=== PATIENT | male | born 1960 | race Two or more races ===

== ENCOUNTER 2025-09-06 12:38 | Emergency (ER) | payer OTHER ==
[~2025-09-06] VITALS: Ht 182.9 cm; Wt 144.2 kg
--- NOTE | 2025-09-06 13:16 | ED.PDOC ---
Musculoskeletal HPI Comments 65 y/o M, with PMHx of thyroid and lung cancer (in remission), CHF, COPD presents to the ED for CC of bilateral lower extremity swelling, exertional shortness of breath. Patient states, he has been experiencing bilateral lower extremity swelling with associated shortness of breath [id number]. Patient relays, symptoms have now been exacerbated in the last x2-3weeks now becoming short of breath upon ambulation and during light activities. Upon arrival to the ED, patient is noted to have a full body rash; endorses rash being present since, completion of chemotherapy and radiation in January 2024. Reports using his albuterol pump with minimal relief. Symptoms feel similar to prior heart failure exacerbations. Reports compliance with 40 mg of Lasix which he takes daily. Patient denies fever, flu-like symptoms, chest pain, or dizziness. No other symptoms or modifying factors are present at this time. Patient also reports that at some point he had some sort of heart issue, was told that he had an abnormal heart rhythm before (likely atrial fibrillation), was on anticoagulation. However, he states that that resolved and he is no longer taking anticoagulation. Does not take any medications for an abnormal heart rhythm Chief Complaint: Lower Extremity Time Seen by MD: 13:25 Reviewed Notes: Nurses Notes, Medications, Allergies Allergies: Coded Allergies: NO KNOWN ALLERGIES (Unverified , 09/06/25) Information Source: Patient Mode of Arrival: Ambulatory Location: Bilateral Extremity Location: Leg Timing: Months Prehospital treatment: None Severity: Moderate Able to Move Extremity: Yes Bear Weight: Fully Mechanism: Spontaneous Circumstances: Spontaneous Onset of Symptoms: Spontaneous Symptoms: Swelling DVT Risk Factors: Cancer Associated signs and symptoms: Swelling Past Medical History PAST MEDICAL HISTORY: Cancer, COPD Surgical History: Denies all surgeries Family History Family History: Unknown Social History Smoker: Non-Smoker Alcohol: Denies ETOH Use Drugs: Denies Drug Use Lives In: Home Constitutional: denies: chills, diaphoresis, fatigue, fever, malaise, sweats, weakness, others EENTM: denies: blurred vision, double vision, ear bleeding, ear discharge, ear drainage, ear pain, ear ringing, eye pain, eye redness, hearing loss, mouth pain, mouth swelling, nasal discharge, nose bleeding, nose congestion, nose pain, photophobia, tearing, throat pain, throat swelling, voice changes, others Respiratory: reports: shortness of breath, SOB with excertion; denies: cough, hemoptysis, orthopnea, stridor, wheezing, others Cardiovascular: reports: edema, palpitations; denies: chest pain, dizzy spells, diaphoresis, Dyspnea on exertion, irregular heart beat, left arm pain, lightheadedness, PND, syncope, others Gastrointestinal: denies: abdomen distended, abdominal pain, blood streaked bowels, constipated, diarrhea, dysphagia, difficulty swallowing, hematemesis, melena, nausea, poor appetite, poor fluid intake, rectal bleeding, rectal pain, vomiting, others Genitourinary: denies: burning, dysuria, flank pain, frequency, hematuria, incontinence, penile discharge, penile sore, pain, testicle pain, testicle swelling, urgency, others Neurological: denies: dizziness, fainting, headache, left sided numbness, left sided weakness, numbness, paresthesia, pre-existing deficit, right sided numbness, right sided weakness, seizure, speech problems, tingling, tremors, weakness, others Musculoskeletal: reports: others (bilateral leg swelling); denies: back pain, gout, joint pain, joint swelling, muscle pain, muscle stiffness, neck pain Integumetry: denies: bruises, change in color, change in hair/nails, dryness, laceration, lesions, lumps, rash, wounds, others Hematologic/Lymphatic: denies: anemia, blood clots, easy bleeding, easy bruising, swollen glands, others Endocrine: denies: excessive hunger, excessive sweating, excessive thirst, excessive urination, flushing, intolerance to cold, intolerance to heat, unexplained weight gain, unexplained weight loss, others Psychiatric: denies: anxiety, bipolar disorder, depression, hopeless, panic disorder, schizophrenia, sleepless, suicidal, others All Other Systems: Reviewed and Negative Physical Exam General Appearance: No Apparent Distress, Normal HEENT: Normal ENT Inspection, Pharynx Normal Neck: Full Range of Motion, Non-Tender, Normal, Normal Inspection Respiratory: Chest Non-Tender, Lungs Clear, No Respiratory Distress, Normal Breath Sounds, Other (Pt becomes tachypneic with short ambulation trial) Cardiovascular: No Murmur, No Gallop, Normal Peripheral Pulses, Regular Rate/Rhythm, Other (Anasarca, 3+ pitting edema bilateral lower extremity extending up to the abdomen) Breast Exam: Deferred Gastrointestinal: No Organomegaly, Non Tender, No Pulsatile Mass, Normal Bowel Sounds, Soft Genitalia: Deferred Pelvic: Deferred Rectal: Deferred Extremities: No calf tenderness, Normal capillary refill, Normal inspection, Normal range of motion, Non-tender, Pedal edema Musculoskeletal : Apperance: Normal Neurologic: Alert, bilingual call center representative II-XII nml as Tested, No Motor Deficits, Normal Affect, Normal Mood, No Sensory Deficits Cerebellar Function: Normal Reflexes: Normal Skin: Dry, Normal Color, Rash (venous stasis changes, erythematous rash along dorsum of feet, anasarca, erythematous rash to lower back ), Warm Lymphatic: No Adenopathy Was a procedure done? Was a procedure done?: No EKG EKG : Pulse Rate (adult): 137 [place]: Normal Cardiac Rhythm: Afib Block: None Hypertrophy: None ST: Normal Differential Diagnosis EXT Differential Diagnosis: CHF, Deep Vein Thrombosis, Other (COPD vs Atrial Fibrillation) X-Ray, Labs, Meds, VS Vital Signs Date Time Temp Pulse Resp B/P (MAP) Pulse Ox O2 Delivery O2 Flow Rate FiO2 09/06/25 18:43 137 09/06/25 18:25 137 09/06/25 18:00 137 18 136/86 (103) 100 09/06/25 17:00 122/81 09/06/25 16:00 Nasal Cannula* 4 36 09/06/25 16:00 97.5 88 21 122/81 (95) 100 97.5 09/06/25 12:50 98.0 97 20 126/89 97 98.0 Lab Test 09/06/25 14:13 Range/Units White Blood Count 8.1 4.4-10.8 10^3/uL Red Blood Count 3.54 L 4.5-5.90 10^6/uL Hemoglobin 10.9 L 13.5-17.5 g/dL Hematocrit 33.3 L 41.0-53.0 % Mean Corpuscular Volume 94.1 80.0-100.0 fL Mean Corpuscular Hemoglobin 30.7 28.0-32.0 pg Mean Corpuscular Hemoglobin Concent 32.7 32.0-36.0 g/dL Red Cell Distribution Width 19.4 H 11.8-14.3 % Platelet Count 435 140-450 10^3/uL Mean Platelet Volume 7.0 6.9-10.8 fL Neutrophils (%) (Auto) 68.6 37.0-80.0 % Lymphocytes (%) (Auto) 7.1 L 10.0-50.0 % Monocytes (%) (Auto) 12.0 0.0-12.0 % Eosinophils (%) (Auto) 11.6 H 0.0-7.0 % Basophils (%) (Auto) 0.7 0.0-2.0 % Neutrophils # (Auto) 5.5 1.6-8.6 10 ^3/uL Lymphocytes # (Auto) 0.6 0.4-5.4 10 ^3/uL Monocytes # (Auto) 1.0 0-1.3 10 ^3/uL Eosinophils # (Auto) 0.9 H 0-0.8 10 ^3/uL Basophils # (Auto) 0.1 0-0.2 10 ^3/uL Nucleated Red Blood Cells 0.0 % Prothrombin Time 11.4 9.3-11.8 sec Prothrombin Time INR 1.08 0.9-1.15 Activated Partial Thromboplast Time 27.7 24.5-34.5 SEC Sodium Level 140 136-145 mmol/L Potassium Level 3.9 3.5-5.1 mmol/L Chloride Level 105 98-107 mmol/L Carbon Dioxide Level 26 20-31 mmol/L Anion Gap 9 5-15 Blood Urea Nitrogen 27 H 9-23 mg/dL Creatinine 1.17 0.700-1.30 mg/dL Glomerular Filtration Rate Calc 69 >90 mL/min BUN/Creatinine Ratio 23.1 H 10.0-20.0 Serum Glucose 98 74-106 mg/dL Calcium Level 9.2 8.7-10.4 mg/dL Troponin I High Sensitivity 14 </=54 ng/L B-Type Natriuretic Peptide 209.90 0-100 pg/mL Current Medications Medications (Trade) Dose Ordered Sig/Cee Route Start Time Stop Time Status Last Admin Furosemide (Lasix Injection) 40 mg ONCE ONCE IV 09/06/25 14:45 09/06/25 14:46 DC 09/06/25 17:00 Diltiazem HCl (Cardizem Injection) 25 mg ONCE ONCE IV 09/06/25 18:30 09/06/25 18:32 DC 09/06/25 19:[address] [address] Ph: [phone] DIAGNOSTIC IMAGING Diagnostic Imaging Report : [id number] Signed PATIENT: TRAN HANNA ACCT: [id number] UNIT: [id number] : 1960 LOC: ER ROOM / BED: / AGE / SEX: 65 / M ADM STATUS: REG ER SERVICE 1258 ORDERING PHYSICIAN: GLEN HUTCHINSON MD PROCEDURE(s): CXR1 - CHEST XRAY 1 VIEW REASON: Chest Pain ORDER NUMBER(s): [id number], ACCESSION NUMBER(s): [id number] EXAM: XY CHEST XRAY 1 VIEW HISTORY: Chest Pain, COPD COMPARISON: None TECHNIQUE: Portable AP view of the chest was performed. FINDINGS: There is a right chest port-A-Cath with its tip in the lower SVC. No pneumothorax, consolidative infiltrates, or pulmonary edema. The heart is borderline enlarged. The aortic arch is calcific. There is thoracic degenerative disc disease. IMPRESSION: No acute intrathoracic process. ATED BY: KYRIE APONTE MD DICTATED DATE/TIME: 09/06/25 134 SIGNED BY: KYRIE APONTE MD SIGNED DATE/TIME: 09/06/25 1343 CC: [address] [address] Ph: [phone] DIAGNOSTIC IMAGING Diagnostic Imaging Report : [id number] Signed PATIENT: TRAN HANNA ACCT: [id number] UNIT: [id number] : 1960 LOC: ER ROOM / BED: / AGE / SEX: 65 / M ADM STATUS: REG ER SERVICE 1258 ORDERING PHYSICIAN: GLEN HUTCHINSON MD PROCEDURE(s): BLDVT - BiLat Lower DVT REASON: BLE swelling; h/o cancer ORDER NUMBER(s): [id number], ACCESSION NUMBER(s): [id number] Bilateral lower extremity venous duplex Clinical History: BLE swelling; h/o cancer Comparison: None Technique: Duplex Doppler evaluation of the deep venous systems of both lower extremities from the common femoral veins to the popliteal veins including color Doppler and spectral/pulsed waveform analysis was performed. Findings: RIGHT SIDE: The common femoral vein demonstrates appropriate compressibility and waveform variability. There is compressibility/patency of the great saphenous vein at the proximal thigh. The femoral vein demonstrates appropriate compressibility and waveform variability. The deep femoral vein demonstrates appropriate compressibility and waveform variability. The popliteal vein demonstrates appropriate compressibility and waveform variability. There is normal compressibility at the tibioperoneal trunk. LEFT SIDE: Multiple enlarged lymph nodes in the left inguinal area. Largest measures 3.7 x 1.3 x 3.2 cm. The common femoral vein demonstrates appropriate compressibility and waveform variability. There is compressibility/patency of the great saphenous vein at the proximal thigh. The femoral vein demonstrates appropriate compressibility and waveform variability. The deep femoral vein demonstrates appropriate compressibility and waveform variability. The popliteal vein demonstrates appropriate compressibility and waveform variability. There is normal compressibility at the tibioperoneal trunk. Impression: 1. No right or left femoropopliteal venous thrombosis. ATED BY: NIKI SANDHU Jr., DO DICTATED DATE/TIME: 09/06/251745 SIGNED BY: NIKI SANDHU Jr., SIGNED DATE/TIME: 09/06/251745 CC: Time of 1ST Reevaluation: 13:55 Reevaluation 1ST: Unchanged Time of 2ND Reevaluation: 18:38 (Patient was trying to get up and positioned himself in bed, then noted to be tachycardic, EKG showing atrial fibrillation with rapid ventricular response.) Reevaluation 2ND: Worsened Patient Education/Counseling: Diagnosis, Treatment Family Education/Counseling: No Family Present Departure 1 Departure Time of Disposition: 18:40 (65 y/o M, with PMHx of thyroid and lung cancer (in remission), CHF, COPD presents to the ED for CC of bilateral lower extremity swelling, exertional shortness of breath. Pt became winded when walking a short distance. Clinically does appear to be fluid overloaded with edema from bilateral legs up to the abdomen. Although he has normal BNP with a normal chest x-ray he reports that his total body weight is up over the past weeks. This clinically seems consistent with heart failure exacerbation. Patient given IV Lasix for this. Although the patient has a history of COPD has no wheezing on examination, clinically does not seem consistent with COPD patient currently. While the patient was in his bed and trying to position himself his heart rate was noted she had up to the 150s, EKG was performed which shows that patient has atrial fibrillation with rapid ventricular response. Patient reports having a distant history of this, not currently taking anything for this. Was given a 1 time IV diltiazem dose. Given the history of malignancy with increased bilateral lower extremity edema, swelling bilateral duplex ultrasounds were performed which are negative for DVT. Does not require CT angiography of the chest given negative DVT study. Pt has no evidence of critical leukocytosis or significant anemia. Metabolic panel with no evidence of acute electrolyte abnormalities. Patient has pain, however, screening troponin not critically elevated. Patient will be admitted for further IV diuresis and further management of his atrial fibrillation with rapid ventricular response.) Impression: Primary Impression: Dyspnea on exertion Additional Impressions: Anasarca Atrial fibrillation with RVR Disposition: ADMITTED INPATIENT Admit to: Tele Condition: Guarded Critical Care Note Critical Care Time?: Yes (45 min-critical care time only) Critical care comment: Patient with signs of fluid overload requiring IV diuresis. Patient with signs of tachyarrhythmia (atrial fibrillation with rapid ventricular response) requiring IV rate-controlling agents to ensure that the patient's blood pressure does not drop. Stability Stability form required: No Heart Score Heart Score: Heart Score Response (Comments) Value History N/A 0 EKG N/A 0 Age N/A 0 Risk Factors N/A 0 Troponin N/A 0 Total 0 I personally scribed for GLEN HUTCHINSON MD ([email or web address]) on 09/06/25 at 13:16. Electronically submitted by Kassi Dior ([email or web address]). I personally scribed for GLEN HUTCHINSON MD ([employer]) on 09/06/25 at 13:19. E lectronically submitted by Kassi Dior ([email or web address]). I personally scribed for GLEN HUTCHINSON MD ([employer]) on 09/06/25 at 14:38. El ectronically submitted by Kassi Dior ([email or web address]). I personally scribed for GLEN HUTCHINSON MD ([email or web address]) on 09/06/25 at 16:32. Inocencia ctronically submitted by Kassi Dior ([email or web address]). I personally scribed for GLEN HUTCHINSON MD ([email or web address]) on 09/06/25 at 19:00. Elec tronically submitted by Kassi Dior ([email or web address]). GLEN HUTCHINSON MD Sep 06, 2025 13:16
--- NOTE | 2025-09-06 13:46 | DVH ---
EXAM: XY CHEST XRAY 1 VIEW HISTORY: Chest Pain, COPD COMPARISON: None TECHNIQUE: Portable AP view of the chest was performed. FINDINGS: There is a right chest port-A-Cath with its tip in the lower SVC. No pneumothorax, consolidative infiltrates, or pulmonary edema. The heart is borderline enlarged. The aortic arch is calcific. There is thoracic degenerative disc disease. IMPRESSION: No acute intrathoracic process.
[2025-09-06 14:23] LABS: Hematocrit 33.3 % (41.0-53.0); Hemoglobin 10.9 g/dL (13.5-17.5); Mean Corpuscular Hemoglobin 30.7 pg (28.0-32.0); Mean Corpuscular Volume 94.1 fL (80.0-100.0); Nucleated Red Blood Cells % 0.0 %
[2025-09-06 14:36] LABS: Chloride 105 mmol/L (98-107); Potassium 3.9 mmol/L (3.5-5.1); Sodium 140 mmol/L (136-145)
[2025-09-06 14:37] LABS: Anion Gap 9 (5-15); Carbon Dioxide 26 mmol/L (20-31)
[2025-09-06 14:38] LABS: Calcium 9.2 mg/dL (8.7-10.4)
[2025-09-06 14:42] LABS: Glucose 98 mg/dL (74-106); INR 1.08 (0.9-1.15); Partial Thromboplastin Time 27.7 SEC (24.5-34.5); Prothrombin Time 11.4 sec (9.3-11.8)
[2025-09-06 14:43] LABS: BUN/Creatinine Ratio 23.1 (10.0-20.0)
[2025-09-06 14:45] LABS: Blood Urea Nitrogen 27 mg/dL (9-23)
[2025-09-06] MEDS: FUROSEMIDE 40 MG/4 ML VIAL IV ONE (17:00)
--- NOTE | 2025-09-06 17:48 | DVH ---
Bilateral lower extremity venous duplex Clinical History: BLE swelling; h/o cancer Comparison: None Technique: Duplex Doppler evaluation of the deep venous systems of both lower extremities from the common femoral veins to the popliteal veins including color Doppler and spectral/pulsed waveform analysis was performed. Findings: RIGHT SIDE: The common femoral vein demonstrates appropriate compressibility and waveform variability. There is compressibility/patency of the great saphenous vein at the proximal thigh. The femoral vein demonstrates appropriate compressibility and waveform variability. The deep femoral vein demonstrates appropriate compressibility and waveform variability. The popliteal vein demonstrates appropriate compressibility and waveform variability. There is normal compressibility at the tibioperoneal trunk. LEFT SIDE: Multiple enlarged lymph nodes in the left inguinal area. Largest measures 3.7 x 1.3 x 3.2 cm. The common femoral vein demonstrates appropriate compressibility and waveform variability. There is compressibility/patency of the great saphenous vein at the proximal thigh. The femoral vein demonstrates appropriate compressibility and waveform variability. The deep femoral vein demonstrates appropriate compressibility and waveform variability. The popliteal vein demonstrates appropriate compressibility and waveform variability. There is normal compressibility at the tibioperoneal trunk. Impression: 1. No right or left femoropopliteal venous thrombosis.
--- NOTE | 2025-09-06 18:26 | ECG ---
[facility] Test Date: 2025-09-06 Test Time: 18:25:47 Pat Name: TRAN HANNA Department: ED Room: [address] [place] [address] Gender: M Transportation Technician: BO : 1960 Requested By: GLEN HUTCHINSON Order Number: [id number] Reading MD: Gerald Bacon Measurements Intervals [place] Rate: 137 P: 0 IA: 0 QRS: 38 QRSD: 88 T: 26 QT: 336 QTc: 508 Interpretive Statements Atrial fibrillation Low voltage, precordial leads Borderline T abnormalities, anterior leads Borderline prolonged QT interval Electronically Signed On 09-07-2025 18:54:30 PST by Gerald Bacon Please click the below link to view image of tracing.
[2025-09-06] MEDS: dilTIAZem 25 MG/5 ML VIAL IV ONE (18:53)
[2025-09-06] MEDS ORDERED: NITROGLYCERIN 0.4 MG SL TAB SL PRN ×2 (19:45→21:45)
[2025-09-06] MEDS ORDERED: MORPHINE SULFATE INJ 2 MG/ml SYRG IV PRN ×3 (19:45→21:45)
[2025-09-06] MEDS: methylPREDNISolone SOD SUCC 125 MG/2 ML VL IV ONE (21:01)
[2025-09-06] MEDS: METOPROLOL TARTRATE 50 MG TAB PO ONE (21:01)
[2025-09-06] MEDS ORDERED: HYDROcodone-ACET 5/325MG TAB PO PRN (21:45)
[2025-09-06] MEDS ORDERED: ONDANSETRON HCL 4 MG/2 ML VIAL IV PRN (21:45)
[2025-09-06 21:50] VITALS: PULSE 108; RESP 20; O2SAT 95
[2025-09-06 23:26] VITALS: PULSE 67; RESP 20; O2SAT 100
[2025-09-06] MEDS: IPRATROPIUM BROM 0.5 MG/2.5ML INH SOL NEB PRN (23:26)
[2025-09-06] MEDS: ALBUTEROL SULF 2.5 MG/0.5ML(0.5%) NEB SOLN NEB PRN (23:26)
[2025-09-06 23:34] VITALS: PULSE 74; RESP 20; O2SAT 100
[2025-09-06] MEDS: ENOXAPARIN SOD 100 MG/1 ML SYRINGE SC SCH (23:46)
[2025-09-06 23:47] VITALS: BP 110/62; PULSE 67; RESP 20; O2SAT 100
--- NOTE | 2025-09-06 23:54 | DVHINCON2 ---
Date of service: Sep 06, 2025 Referring Physician Alex Reason for Consultation A-fib RVR History of Present Illness This is a 65 year old male with a PMH of thyroid and lung cancer (in remission), CHF, COPD presents to the ED with complaint of bilateral lower extremity swelling, exertional shortness of breath. Patient states he has been experiencing bilateral lower extremity swelling with associated shortness of breath x 2months. Patient relays, symptoms have now been exacerbated in the last x 2-3weeks now becoming short of breath upon ambulation and during light activities. Upon arrival to the ED, patient is noted to have a full body rash, endorses rash being present since, completion of chemotherapy and radiation in January 2024. Reports using his albuterol pump with minimal relief. Symptoms feel similar to prior heart failure exacerbations. Reports compliance with 40 mg of Lasix which he takes daily. Patient also reports that at some point he had some sort of heart issue, was told that he had an abnormal heart rhythm before (likely atrial fibrillation), was on anticoagulation. However, he states that that resolved and he is no longer taking anticoagulation. Does not take any medications for an abnormal heart rhythm. EKG showed A Fib with RVR at 137. Troponin is negative x2. Chest x-ray showed NAD. Patient was admitted to the hospital. I am asked to consult on this patient. Allergies: Coded Allergies: NO KNOWN ALLERGIES (Unverified , 09/06/25) Current Medications Current Medications Medications (Trade) Dose Ordered Sig/Cee Route PRN Reason Start Time Stop Time Status Last Admin Nitroglycerin (Ntrostat Sublingual) 0.4 mg Q5MINP PRN SL FOR CHEST PAIN 09/06/25 19:45 09/06/25 21:19 DC Morphine Sulfate 2 mg Q30M PRN IV FOR CHEST PAIN 09/06/25 19:45 09/06/25 21:19 DC Acetaminophen (Tylenol Tablet) 325 mg Q4HP PRN PO MILD PAIN (1-3 PAIN SCALE) 09/06/25 21:45 Acetaminophen/ Hydrocodone Bitart ([place] 5/325MG Tab) 1 tab Q4HP PRN PO MODERATE PAIN (4-6 PAIN SCALE) 09/06/25 21:45 Ondansetron HCl (Zofran) 4 mg Q4HP PRN IV NAUSEA / VOMITING 09/06/25 21:45 Enoxaparin Sodium (Lovenox) 40 mg DAILY SC 09/07/25 10:00 09/06/25 23:23 DC Morphine Sulfate 2 mg Q4HPRN PRN IV SEVERE PAIN (7-10 PAIN SCALE) 09/06/25 21:45 Nitroglycerin (Ntrostat Sublingual) 0.4 mg Q5MINP PRN SL FOR CHEST PAIN 09/06/25 21:45 Morphine Sulfate 2 mg Q30M PRN IV FOR CHEST PAIN 09/06/25 21:45 Albuterol (Ventolin Medneb) 2.5 mg Q4HPRN PRN NEB SHORTNESS OF BREATH 09/06/25 23:15 09/06/25 23:26 Ipratropium [place] (Atrovent Medneb) 0.5 mg Q4HPRN PRN NEB SHORTNESS OF BREATH 09/06/25 23:15 09/06/25 23:26 Enoxaparin Sodium (Lovenox) 140 mg Q12HR SC 09/06/25 23:30 Review of Systems Constitutional: denies: chills, diaphoresis, fatigue, fever, malaise, sweats, weakness, others EENTM: denies: blurred vision, double vision, ear bleeding, ear discharge, ear drainage, ear pain, ear ringing, eye pain, eye redness, hearing loss, mouth pain, mouth swelling, nasal discharge, nose bleeding, nose congestion, nose pain, photophobia, tearing, throat pain, throat swelling, voice changes, others Respiratory: reports: shortness of breath, SOB with excertion; denies: cough, hemoptysis, orthopnea, stridor, wheezing, others Cardiovascular: reports: edema, palpitations; denies: chest pain, dizzy spells, diaphoresis, Dyspnea on exertion, irregular heart beat, left arm pain, lightheadedness, PND, syncope, others Gastrointestinal: denies: abdomen distended, abdominal pain, blood streaked bowels, constipated, diarrhea, dysphagia, difficulty swallowing, hematemesis, melena, nausea, poor appetite, poor fluid intake, rectal bleeding, rectal pain, vomiting, others Genitourinary: denies: burning, dysuria, flank pain, frequency, hematuria, incontinence, penile discharge, penile sore, pain, testicle pain, testicle swelling, urgency, others Neurological: denies: dizziness, fainting, headache, left sided numbness, left sided weakness, numbness, paresthesia, pre-existing deficit, right sided numbness, right sided weakness, seizure, speech problems, tingling, tremors, weakness, others Musculoskeletal: reports: others (bilateral leg swelling); denies: back pain, gout, joint pain, joint swelling, muscle pain, muscle stiffness, neck pain Integumetry: denies: bruises, change in color, change in hair/nails, dryness, laceration, lesions, lumps, rash, wounds, others Hematologic/Lymphatic: denies: anemia, blood clots, easy bleeding, easy bruising, swollen glands, others Endocrine: denies: excessive hunger, excessive sweating, excessive thirst, excessive urination, flushing, intolerance to cold, intolerance to heat, unexplained weight gain, unexplained weight loss, others Psychiatric: denies: anxiety, bipolar disorder, depression, hopeless, panic disorder, schizophrenia, sleepless, suicidal, others All Other Systems: Reviewed and Negative Vital Signs Vital Signs Date Time Temp Pulse Resp B/P (MAP) Pulse Ox O2 Delivery O2 Flow Rate FiO2 09/06/25 23:34 74 20 100 09/06/25 23:26 Nasal Cannula* 2 28 09/06/25 22:40 110/62 (78) 09/06/25 20:16 98.1 98.1 Physical Exam GENERAL: Alert and oriented x 3. No acute distress. EYES: PERRL, EOMI. Anicteric. HENT: Moist mucous membranes. LUNGS: Decreased breath sounds. CARDIOVASCULAR: Regular rate and rhythm. ABDOMEN: Soft, nontender and nondistended. EXTREMITIES: Anasarca, 3+ pitting edema bilateral lower extremity extending up to the abdomen. NEUROLOGIC: No focal neurological deficits. SKIN: Warm, dry. Venous stasis changes, erythematous rash along dorsum of feet, anasarca, erythematous rash to lower back. Labs/Diagnostic Data Labs Test 09/06/25 19:59 09/06/25 14:13 Range/Units Troponin I High Sensitivity 16 </=54 ng/L White Blood Count 8.1 4.4-10.8 10^3/uL Red Blood Count 3.54 L 4.5-5.90 10^6/uL Hemoglobin 10.9 L 13.5-17.5 g/dL Hematocrit 33.3 L 41.0-53.0 % Mean Corpuscular Volume 94.1 80.0-100.0 fL Mean Corpuscular Hemoglobin 30.7 28.0-32.0 pg Mean Corpuscular Hemoglobin Concent 32.7 32.0-36.0 g/dL Red Cell Distribution Width 19.4 H 11.8-14.3 % Platelet Count 435 140-450 10^3/uL Mean Platelet Volume 7.0 6.9-10.8 fL Neutrophils (%) (Auto) 68.6 37.0-80.0 % Lymphocytes (%) (Auto) 7.1 L 10.0-50.0 % Monocytes (%) (Auto) 12.0 0.0-12.0 % Eosinophils (%) (Auto) 11.6 H 0.0-7.0 % Basophils (%) (Auto) 0.7 0.0-2.0 % Neutrophils # (Auto) 5.5 1.6-8.6 10 ^3/uL Lymphocytes # (Auto) 0.6 0.4-5.4 10 ^3/uL Monocytes # (Auto) 1.0 0-1.3 10 ^3/uL Eosinophils # (Auto) 0.9 H 0-0.8 10 ^3/uL Basophils # (Auto) 0.1 0-0.2 10 ^3/uL Nucleated Red Blood Cells 0.0 % Prothrombin Time 11.4 9.3-11.8 sec Prothrombin Time INR 1.08 0.9-1.15 Activated Partial Thromboplast Time 27.7 24.5-34.5 SEC Sodium Level 140 136-145 mmol/L Potassium Level 3.9 3.5-5.1 mmol/L Chloride Level 105 98-107 mmol/L Carbon Dioxide Level 26 20-31 mmol/L Anion Gap 9 5-15 Blood Urea Nitrogen 27 H 9-23 mg/dL Creatinine 1.17 0.700-1.30 mg/dL Glomerular Filtration Rate Calc 69 >90 mL/min BUN/Creatinine Ratio 23.1 H 10.0-20.0 Serum Glucose 98 74-106 mg/dL Calcium Level 9.2 8.7-10.4 mg/dL B-Type Natriuretic Peptide 209.90 0-100 pg/mL Assessment Atrial fibrillation with RVR. Acute on chronic respiraotry failure. Plan/Recommendation I agree with your ongoing assessment and care of plan. Echocardiogram. Morphine and [place] for pain management. DVT prophylactics. Nitro SL. Additional plan as per the hospital course. A total of 45 minutes was spent reviewing the patient record, examining the patient, making a diagnostic and therapeutic plan, discussing this plan with medical personnel, following up on diagnostic studies and following the patient for clinical stability excluding any and all procedures. At least 50% of this time was spent in direct, [id number] contact. Plan discussed with: Patient EMI DAMON MD Sep 06, 2025 23:47
[2025-09-07] MEDS: ACETAMINOPHEN 325 MG TAB PO PRN (05:13)
[2025-09-07 06:32] VITALS: O2SAT 99
[2025-09-07 06:51] LABS: Hematocrit 31.4 % (41.0-53.0); Hemoglobin 10.2 g/dL (13.5-17.5); Mean Corpuscular Hemoglobin 30.9 pg (28.0-32.0); Mean Corpuscular Volume 95.2 fL (80.0-100.0); Nucleated Red Blood Cells % 0.1 %
[2025-09-07 07:01] LABS: Albumin 3.9 g/dL (3.2-4.8); Alkaline Phosphatase 81 U/L (46-116); Anion Gap 7 (5-15); BUN/Creatinine Ratio 23.4 (10.0-20.0); Calcium 8.8 mg/dL (8.7-10.4); Carbon Dioxide 27 mmol/L (20-31); Chloride 107 mmol/L (98-107); Potassium 4.4 mmol/L (3.5-5.1); Sodium 141 mmol/L (136-145); Total Protein 7.0 g/dL (5.7-8.2)
[2025-09-07 07:02] LABS: Bilirubin, Total 0.7 mg/dL (0.2-1.0)
[2025-09-07 07:05] LABS: Alanine Aminotransferase 52 U/L (7-40); Blood Urea Nitrogen 30 mg/dL (9-23); Glucose 137 mg/dL (74-106)
[2025-09-07 08:00] VITALS: PULSE 88; RESP 12; O2SAT 97
[2025-09-07] MEDS: methylPREDNISolone SOD SUCC 125 MG/2 ML VL IV ONE (08:30)
[2025-09-07] MEDS ORDERED: ENOXAPARIN SOD 40 MG/0.4 ML SYRINGE SC SCH (10:00)
--- NOTE | 2025-09-07 11:31 | DVHHP2 ---
Admitting Diagnosis: Atrial Fibrillation with RVR History of Present Illness HPI Patient is a 65-year-old male past medical history of lung cancer in remission, COPD, current tobacco smoker, who presents with complaints of generalized weakness and shortness of breath. Patient states he does not use oxygen at home. On arrival, patient's vitals were within normal limits with the exception of hypoxia requiring 4 L nasal cannula. CBC was done which did not reveal any leukocytosis. BMP was done which was notable for BUN/creatinine 27/1.17. Chest x-ray was done which did not reveal any acute intrathoracic process. Ultrasound lower extremity was done which did not reveal any DVT. Patient was noted to go into atrial fibrillation RVR while in the ER. He notes he has been compliant with his medications. Patient was admitted for further medical management. Past Medical History Cardiac: AFIB Pulmonary: COPD Review of Systems Constitutional: Weakness Pulmonary/Respiratory: Dyspnea H&P Exam Vital Signs Vital Signs Date Time Temp Pulse Resp B/P (MAP) Pulse Ox O2 Delivery O2 Flow Rate FiO2 09/07/25 10:00 96 22 124/67 (86) 95 09/07/25 08:30 98.3 98.3 09/07/25 08:00 Nasal Cannula* 1 24 General Appeara: Well developed, Obese Pulmonary/Respiratory: Wheezing Cardiovascular/Chest: Edema, Irregularly irregular SEPSIS Sepsis Screen Date sepsis recognized/suspect: Sep 07, 2025 Time Sepsis recognized/suspect: 0800 Recent Procedure: No On Antibiotic Therapy: No Respiratory Rate >20: No Heart Rate >90: No Temp<36 C (96.8 F) or >38.3 C: No SBP <90 or MAP <65 mmHG: No New Acute Mental Status Change: No Is the patient on CPAP, BIPAP,: No Vital Signs Date Time Temp Pulse Resp B/P (MAP) Pulse Ox O2 Delivery O2 Flow Rate FiO2 09/07/25 10:00 96 22 124/67 (86) 95 09/07/25 08:30 98.3 90 19 125/56 (79) 99 98.3 09/07/25 08:00 84 09/07/25 08:00 97.5 88 12 107/67 (80) 97 97.5 09/07/25 08:00 88 12 97 Nasal Cannula* 1 24 09/07/25 06:32 99 Nasal Cannula 2.0 09/07/25 06:32 99 Nasal Cannula* 2 28 09/07/25 06:00 98.1 84 16 100/58 (72) 99 98.1 09/07/25 04:00 84 17 101/61 (74) 95 Laboratory Tests Test 09/07/25 05:14 White Blood Count 7.3 10^3/uL (4.4-10.8) Medications Medications Dose Ordered Sig/Cee Route Start Time Stop Time Status Last Admin Dose Admin Enoxaparin Sodium 140 mg Q12HR SC 09/06/25 23:30 09/07/25 10:39 140 MG Methylprednisolone Sodium Succinate 80 mg ONCE ONCE IV 09/07/25 08:30 09/07/25 08:45 DC 09/07/25 10:39 80 MG Labs/Xrays Labs Test 09/07/25 05:14 09/06/25 19:59 09/06/25 14:13 Range/Units White Blood Count 7.3 4.4-10.8 10^3/uL Red Blood Count 3.30 L 4.5-5.90 10^6/uL Hemoglobin 10.2 L 13.5-17.5 g/dL Hematocrit 31.4 L 41.0-53.0 % Mean Corpuscular Volume 95.2 80.0-100.0 fL Mean Corpuscular Hemoglobin 30.9 28.0-32.0 pg Mean Corpuscular Hemoglobin Concent 32.4 32.0-36.0 g/dL Red Cell Distribution Width 19.7 H 11.8-14.3 % Platelet Count 410 140-450 10^3/uL Mean Platelet Volume 7.5 6.9-10.8 fL Neutrophils (%) (Auto) 95.6 H 37.0-80.0 % Lymphocytes (%) (Auto) 2.7 L 10.0-50.0 % Monocytes (%) (Auto) 1.5 0.0-12.0 % Eosinophils (%) (Auto) 0.1 0.0-7.0 % Basophils (%) (Auto) 0.1 0.0-2.0 % Neutrophils # (Auto) 6.9 1.6-8.6 10 ^3/uL Lymphocytes # (Auto) 0.2 L 0.4-5.4 10 ^3/uL Monocytes # (Auto) 0.1 0-1.3 10 ^3/uL Eosinophils # (Auto) 0 0-0.8 10 ^3/uL Basophils # (Auto) 0 0-0.2 10 ^3/uL Nucleated Red Blood Cells 0.1 % Sodium Level 141 136-145 mmol/L Potassium Level 4.4 3.5-5.1 mmol/L Chloride Level 107 98-107 mmol/L Carbon Dioxide Level 27 20-31 mmol/L Anion Gap 7 5-15 Blood Urea Nitrogen 30 H 9-23 mg/dL Creatinine 1.28 0.700-1.30 mg/dL Glomerular Filtration Rate Calc 62 >90 mL/min BUN/Creatinine Ratio 23.4 H 10.0-20.0 Serum Glucose 137 H 74-106 mg/dL Calcium Level 8.8 8.7-10.4 mg/dL Total Bilirubin 0.7 0.2-1.0 mg/dL Aspartate Amino Transferase (AST) 114 H 13-40 U/L Alanine Aminotransferase (ALT) 52 H 7-40 U/L Alkaline Phosphatase 81 46-116 U/L Total Protein 7.0 5.7-8.2 g/dL Albumin 3.9 3.2-4.8 g/dL Troponin I High Sensitivity 16 </=54 ng/L Prothrombin Time 11.4 9.3-11.8 sec Prothrombin Time INR 1.08 0.9-1.15 Activated Partial Thromboplast Time 27.7 24.5-34.5 SEC B-Type Natriuretic Peptide 209.90 0-100 pg/mL Assessment/Plan Primary Diagnosis 1. Atrial Fibrillation with RVR 2. COPD Exacerbation 3. Acute Hypoxic Respiratory Failure 4. Morbid Obesity Plan: - Admit to telemetry - Cardiology consulted for atrial fibrillation RVR - Metoprolol to tartrate 50 mg twice daily - TTE pending - Solu-Medrol 25 mg daily - DuoNebs -Azithromycin 500mg IV daily -Lovenox 1mg/kg BID for CVA prevention, elevated CHADSVASC2 -daily cbc and bmp -Full Code Plan discussed with: Patient TRACY SAMUELS Sep 07, 2025 11:31
[2025-09-07] MEDS: predniSONE 20 MG TAB PO ONE (13:25)
[2025-09-07] MEDS: AZITHROMYCIN 250 MG TAB PO ONE (13:25)
[2025-09-07] MEDS ORDERED: APIX5TAB PO (15:08)
[2025-09-07] MEDS ORDERED: AZIT-185 PO (15:09)
[2025-09-07] MEDS ORDERED: METO25TA5 PO (15:10)
[2025-09-07] MEDS ORDERED: METH4PAK PO (15:11)
[2025-09-07 16:00] VITALS: BP 144/73; PULSE 91; RESP 14; TEMP 97.6; O2SAT 97
--- NOTE | 2025-09-07 16:22 | DVHPN2 ---
Progress Note - Dictate Date Seen: Sep 07, 2025 Medical Necessity Reason Pt with a Central, PICC or Fol: No Subjective Patient was seen and evaluated in follow up. Patient is complaining of generalized pain. He is on 1 LPM NC. BUN 30, AST 114, ALT 52. Telemetry reviewed. vital signs Vital Sign Date Time Temp Pulse Resp B/P (MAP) Pulse Ox O2 Delivery O2 Flow Rate FiO2 09/07/25 10:00 96 22 124/67 (86) 95 09/07/25 08:30 98.3 98.3 09/07/25 08:00 Nasal Cannula* 1 24 Total Intake and Output 09/06/25 09/06/25 09/07/25 15:00 23:00 07:00 Output Total 800 ml Balance -800 ml medications Current Medications Medications Dose Ordered Sig/Cee Route Start Time Stop Time Status Last Admin Dose Admin Acetaminophen 325 mg Q4HP PRN PO 09/06/25 21:45 09/07/25 05:13 325 MG Acetaminophen/ Hydrocodone Bitart 1 tab Q4HP PRN PO 09/06/25 21:45 Ondansetron HCl 4 mg Q4HP PRN IV 09/06/25 21:45 Morphine Sulfate 2 mg Q4HPRN PRN IV 09/06/25 21:45 Nitroglycerin 0.4 mg Q5MINP PRN SL 09/06/25 21:45 Morphine Sulfate 2 mg Q30M PRN IV 09/06/25 21:45 Albuterol 2.5 mg Q4HPRN PRN NEB 09/06/25 23:15 09/06/25 23:26 2.5 MG Ipratropium [place] 0.5 mg Q4HPRN PRN NEB 09/06/25 23:15 09/06/25 23:26 0.5 MG Enoxaparin Sodium 140 mg Q12HR SC 09/06/25 23:30 09/07/25 10:39 140 MG Azithromycin 250 ml @ 125 mls/hr DAILY IV 09/08/25 10:00 UNV objective GENERAL: Alert and oriented x 3. No acute distress. EYES: PERRL, EOMI. Anicteric. HENT: Moist mucous membranes. LUNGS: Decreased breath sounds. CARDIOVASCULAR: Regular rate and rhythm. ABDOMEN: Soft, nontender and nondistended. EXTREMITIES: Anasarca, 3+ pitting edema bilateral lower extremity extending up to the abdomen. NEUROLOGIC: No focal neurological deficits. SKIN: Warm, dry. Venous stasis changes, erythematous rash along dorsum of feet, anasarca, erythematous rash to lower back. laboratory and microbiology Laboratory Tests 09/07/25 05:14 Test 09/07/25 05:14 Range/Units Serum Glucose 137 H 74-106 mg/dL Problem List Atrial fibrillation with RVR. Acute on chronic respiratory failure. Assessment/Plan Continued all current supportive medical care. Echocardiogram. DVT prophylactics. IV antibiotics as ordered. Morphine and [place] for pain management. Additional plan as per the hospital course. Plan discussed with: Patient EMI DAMON MD Sep 07, 2025 12:24
[2025-09-08] MEDS ORDERED: AZITHROMYCIN 500MG/250ML 250 ML IV SCH (10:00)
--- NOTE | 2025-09-12 23:35 | DVHSR ---
APPROVED REPORT EXAM: LIMITED Two-dimensional and M-mode echocardiogram with Doppler and color Doppler. Blood Pressure: 100/58 mmHg INDICATION chf eval afib rvr RISK FACTORS Obesity: Height: 6'0, Weight: 320 DIMENSIONS LVDd 5.7 (3.8-5.7cm) LA (2D) (1.9-4.0cm) Aortic Root 4.5 (2.0-3.7cm) LVDs 3.9 (2.5-4.0cm) LA (MM) (1.9-4.0cm) Aortic Cusp Exc 2.4 (1.5-2.0cm) EF (%) 54.0 (55-70%) Rt. Atrium (1.9-4.0cm) Asc. Aorta 4.1 cm IVSd 1.1 (0.7-1.1cm) RV (D) (1.8-2.4cm) PWd 0.9 (0.7-1.1cm) Mitral Valve Mitral Mitral Stenosis E wave 0.79m/s MV Mean GR. mmHg A wave 0.81m/s MV Peak GR. mmHg E/A ratio 1.0 2D MVA cm2 DECEL Time 118ms PRESS 1/2 Time ms Aortic Valve Aortic Valve Aortic Stenosis V1 1.10m/s AO Mean GR. 4mmHg V2 1.16m/s AO Peak GR. 5mmHg LVOT Diameter 2.6 (1.8-2.4cm) Doppler DONNY 5.03cm2 Pulmonic Valve V2 0.90m/s Tricuspid Valve TR Velocity 2.00m/s RVSP 16mmHg Other Information Quality : Technically Limited Rhythm : Technically limited study due to body habitus.patient position. Conclusion LV EF IS 54% NORMAL VALVES NO EFFUSION
== END 2025-09-07 16:37 | disposition home or self-care (01) ==
LOC: ER 12:38 → OVERFLOW 19:37 → UNDOADMIN 19:37 → ER 09-07 16:37
DX: I48.20 Chronic atrial fibrillation, unspecified (principal); R60.1 Generalized edema
CPT/HCPCS: 36415; 71045; 80048; 80053; 83880; 84484; 85025; 85610; 85730; 93005; 93970; 94640; 96374; 96375; 99291; J1650; J1938; J2919; G0378